=== PATIENT | female | born 1955 | race American Indian/Alaskan Native ===

== ENCOUNTER 2021-02-26 16:01 | Emergency (ER) | payer MEDICARE, OTHER ==
[2021-02-26 16:20] VITALS: BP 129/87
--- NOTE | 2021-02-26 17:24 | Emergency Department Report ---
ED General Adult HPI - General Chief complaint: Extremity Problem,Nontraumatic Stated complaint: SWOLLEN LEG AND ANKLE Time Seen by Provider: 02/26/21 16:47 Source: patient, family Mode of arrival: Ambulatory Limitations: No Limitations - History of Present Illness Initial comments: 66-year-old -[place] female patient with history of hypertension and GERD presents with complaints of bilateral lower leg swelling and ankle swelling starting last night. She states the swelling worsened upon waking this morning. She denies any recent long travel, chest pain, shortness of breath, cough/hemoptysis, or hormone use. Patient states she was diagnosed with a DVT at the beginning of December and placed on Eliquis, however 2 weeks after her diagnosis was rechecked by her vascular specialist and states that there were no blood clots noted. Patient reports that she believes the DVT diagnosis was a false diagnosis. Patient also denies any numbness/tingling/weakness in her limbs or skin changes. No difficulty with ambulation per patient. She reports that she does take amlodipine for her blood pressure and that she noticed her generic of amlodipine was changed 2 weeks ago by her pharmacy - Related Data Home Medications Medication Instructions Recorded Confirmed Last Taken Cyclobenzaprine [Flexeril 10 MG 10 mg PO Q6H PRN 07/31/13 07/31/13 Unknown TAB] HYDROcodone/APAP 5-325 [[place] 1 tab PO Q4H PRN 07/31/13 07/31/13 Unknown 5-325 mg TAB] Lisinopril/Hydrochlorothiazide 1 tab PO DAILY 07/31/13 07/31/13 Unknown [Zestoretic 20-25 mg] Zolpidem (Nf) [Ambien (Nf)] 10 mg PO QHS PRN 07/31/13 07/31/13 Unknown Allergies Allergy/AdvReac Type Severity Reaction Status Date / Time aspirin Allergy Unknown Verified 07/31/13 03:07 morphine Allergy Rash Verified 07/31/13 03:07 Penicillins Allergy Rash Verified 07/31/13 03:07 ED Review of Systems ROS: Stated complaint: SWOLLEN LEG AND ANKLE Other details as noted in HPI Constitutional: denies: chills, fever, malaise Respiratory: denies: shortness of breath Cardiovascular: denies: chest pain Gastrointestinal: denies: abdominal pain Musculoskeletal: joint swelling Skin: denies: change in color Neurological: denies: numbness, paresthesias, abnormal gait ED Past Medical Hx - Past Medical History Previous Medical History?: Yes Hx Hypertension: Yes Additional medical history: ulcer, hernia, neck pain - Surgical History Past Surgical History?: Yes Additional Surgical History: back surgery, hernia repair, benign lumps removed from both breasts - Social History Smoking Status: Never Smoker - Medications Home Medications: Home Medications Medication Instructions Recorded Confirmed Last Taken Type Cyclobenzaprine [Flexeril 10 MG 10 mg PO Q6H PRN 07/31/13 07/31/13 Unknown History TAB] HYDROcodone/APAP 5-325 [[place] 1 tab PO Q4H PRN 07/31/13 07/31/13 Unknown History 5-325 mg TAB] Lisinopril/Hydrochlorothiazide 1 tab PO DAILY 07/31/13 07/31/13 Unknown History [Zestoretic 20-25 mg] Zolpidem (Nf) [Ambien (Nf)] 10 mg PO QHS PRN 07/31/13 07/31/13 Unknown History ED Physical Exam - General Limitations: No Limitations General appearance: alert, in no apparent distress - Head Head exam: Present: atraumatic, normocephalic - Eye Eye exam: Present: normal appearance. Absent: scleral icterus - Respiratory Respiratory exam: Absent: normal lung sounds bilaterally, respiratory distress - Cardiovascular Cardiovascular Exam: Present: regular rate, normal rhythm - Extremities Exam Extremities exam: Present: other (Mild nonpitting edema noted bilaterally to ankles; there is mild tenderness to palpation of the left calf; no skin changes noted; patient has full range of motion of the legs and normal pedal pulse) - Neurological Exam Neurological exam: Present: alert, oriented X3, normal gait - Psychiatric Psychiatric exam: Present: normal affect, normal mood - Skin Skin exam: Present: warm, dry, intact, normal color. Absent: rash ED Course Vital Signs 02/26/21 16:18 Temperature 98.2 F Pulse Rate 77 Respiratory 16 Rate Blood Pressure 129/87 O2 Sat by Pulse 97 Oximetry ED Medical Decision Making - Lab Data Result diagrams: 02/26/21 17:31 02/26/21 17:31 Lab Results 02/26/21 02/26/21 Range/Units 17:31 17:31 WBC 5.3 (4.5-11.0) K/mm3 RBC 4.43 (3.65-5.03) M/mm3 Hgb 13.4 (10.1-14.3) gm/dl Hct 39.6 (30.3-42.9) % MCV 90 (79-97) fl MCH 30 (28-32) pg MCHC 34 (30-34) % RDW 15.1 (13.2-15.2) % Plt Count 295 (140-440) K/mm3 Lymph % (Auto) 30.7 (13.4-35.0) % [place] % (Auto) 6.0 (0.0-7.3) % Eos % (Auto) 3.7 (0.0-4.3) % Baso % (Auto) 0.8 (0.0-1.8) % Lymph # (Auto) 1.6 (1.2-5.4) K/mm3 [place] # (Auto) 0.3 (0.0-0.8) K/mm3 Eos # (Auto) 0.2 (0.0-0.4) K/mm3 Baso # (Auto) 0.0 (0.0-0.1) K/mm3 Seg Neutrophils % 58.8 (40.0-70.0) % Seg Neutrophils # 3.1 (1.8-7.7) K/mm3 Sodium 141 (137-145) mmol/L Potassium 3.6 (3.6-5.0) mmol/L Chloride 98.9 (98-107) mmol/L Carbon Dioxide 28 (22-30) mmol/L Anion Gap 18 mmol/L BUN 15 (7-17) mg/dL Creatinine 0.7 (0.6-1.2) mg/dL Estimated GFR > 60 ml/min BUN/Creatinine Ratio 21 % Glucose 102 H (65-100) mg/dL Calcium 9.6 (8.4-10.2) mg/dL Total Bilirubin 0.20 (0.1-1.2) mg/dL AST 26 (5-40) units/L ALT 19 (7-56) units/L Alkaline Phosphatase 123 (35-129) units/L NT-Pro-B Natriuret Pep 27.85 (0-900) pg/mL Total Protein 8.4 H (6.3-8.2) g/dL Albumin 4.4 (3.9-5) g/dL Albumin/Globulin Ratio 1.1 % - Radiology Data Radiology results: report reviewed DUPLEX DOPPLER LOWER EXTREMITY VEINS, BILATERAL INDICATION / CLINICAL INFORMATION: Bilateral lower extremity swelling and pain. TECHNIQUE: Duplex doppler imaging was performed through the veins of both lower extremities using venous compression and other maneuvers. COMPARISON: None available. FINDINGS: RIGHT COMMON FEMORAL VEIN: Negative. RIGHT FEMORAL VEIN: Negative. RIGHT POPLITEAL VEIN: Negative. RIGHT CALF VEINS: Negative. LEFT COMMON FEMORAL VEIN: Negative. LEFT FEMORAL VEIN: Negative. LEFT POPLITEAL VEIN: Negative. LEFT CALF VEINS: Negative. ADDITIONAL FINDINGS: None. IMPRESSION: 1. No sonographic evidence for DVT in either lower extremity. - Medical Decision Making 66-year-old -[place] female patient with history of hypertension and GERD presents with complaints of bilateral lower leg swelling and ankle swelling starting last night. She states the swelling worsened upon waking this morning. She denies any recent long travel, chest pain, shortness of breath, cough/hemoptysis, or hormone use. Patient states she was diagnosed with a DVT at the beginning of December and placed on Eliquis, however 2 weeks after her diagnosis was rechecked by her vascular specialist and states that there were no blood clots noted. Patient reports that she believes the DVT diagnosis was a false diagnosis. Patient also denies any numbness/tingling/weakness in her limbs or skin changes. No difficulty with ambulation per patient. She reports that she does take amlodipine for her blood pressure and that she noticed her generic of amlodipine was changed 2 weeks ago by her pharmacy Ultrasound is negative for any DVTs. BMP is normal. Kidney function is normal CMP. Recommend patient follows up with her primary care provider for further evaluation of her peripheral edema. Discussed leg elevation, compression hose, and strict return precautions in detail with patient verbalized understanding. She is well-appearing, her vitals are normal, she is stable for discharge home. Critical care attestation.: If time is entered above; I have spent that time in minutes in the direct care of this critically ill patient, excluding procedure time. ED Disposition Clinical Impression: Swelling of lower leg Disposition: HOME / SELF CARE / HOMELESS Is pt being admited?: No Condition: Stable Instructions: Peripheral Edema Referrals: PRIMARY CARE, [Referring] - 3-5 Days
[2021-02-26 17:48] LABS: Basophils % (Auto) 0.8 % (0.0-1.8); Eosinophils # (Auto) 0.2 K/mm3 (0.0-0.4); Eosinophils % (Auto) 3.7 % (0.0-4.3); Hematocrit 39.6 % (30.3-42.9); Hemoglobin 13.4 gm/dl (10.1-14.3); Lymphocytes # (Auto) 1.6 K/mm3 (1.2-5.4); Lymphocytes % (Auto) 30.7 % (13.4-35.0); Mean Corpuscular HGB Conc 34 % (30-34); Mean Corpuscular Volume 90 fl (79-97); Monocytes # (Auto) 0.3 K/mm3 (0.0-0.8); Platelet Count 295 K/mm3 (140-440); Red Blood Count 4.43 M/mm3 (3.65-5.03); Red Cell Distribution Width 15.1 % (13.2-15.2)
[2021-02-26 18:13] LABS: Alanine Aminotransferase 19 units/L (7-56); Albumin 4.4 g/dL (3.9-5); Blood Urea Nitrogen 15 mg/dL (7-17); Calcium 9.6 mg/dL (8.4-10.2); Hemolysis Index 2
[2021-02-26 18:14] LABS: BUN/Creatinine Ratio 21
--- NOTE | 2021-02-26 21:13 | Vascular Lab Report ---
DUPLEX DOPPLER LOWER EXTREMITY VEINS, BILATERAL INDICATION / CLINICAL INFORMATION: Bilateral lower extremity swelling and pain. TECHNIQUE: Duplex doppler imaging was performed through the veins of both lower extremities using venous anne-marie mary jane and other maneuvers. COMPARISON: None available. FINDINGS: RIGHT COMMON FEMORAL VEIN: Negative. RIGHT FEMORAL VEIN: Negative. RIGHT POPLITEAL VEIN: Negative. RIGHT CALF VEINS: Negative. LEFT COMMON FEMORAL VEIN: Negative. LEFT FEMORAL VEIN: Negative. LEFT POPLITEAL VEIN: Negative. LEFT CALF VEINS: Negative. ADDITIONAL FINDINGS: None. IMPRESSION: 1. No sonographic evidence for DVT in either lower extremity. Signer Name: Stuart Hung MD Signed: 02/26/2021 9:09 PM Workstation Name: [id number]
== END 2021-02-26 22:02 | disposition home or self-care (01) ==
LOC: ED 16:01
DX: M79.89 Other specified soft tissue disorders (principal); R60.0 Localized edema; I10 Essential (primary) hypertension; Z88.0 Allergy status to penicillin; Z88.5 Allergy status to narcotic agent; Z88.8 Allergy status to other drugs, medicaments and biological substances
CPT/HCPCS: 36415; 80053; 83880; 85025; 93970; 99284